=== PATIENT | male | born 1995 | race American Indian/Alaskan Native ===

== ENCOUNTER 2017-03-03 06:11 | Inpatient (IN) | payer OTHER ==
[2017-03-03 06:50] LABS: Basophils % (Auto) 0.5 % (0.0-1.8); Eosinophils % (Auto) 7.1 % (0.0-4.3); Hematocrit 46.1 % (35.5-45.6); Hemoglobin 14.7 gm/dl (11.8-15.2); Mean Corpuscular HGB Conc 32 % (32-34); Mean Corpuscular Volume 79 fl (84-94); Platelet Count 189 K/mm3 (140-440); Red Blood Count 5.82 M/mm3 (3.65-5.03); Red Cell Distribution Width 13.7 % (13.2-15.2); White Blood Count 10.7 K/mm3 (4.5-11.0)
[2017-03-03 06:53] LABS: Mean Corpuscular Hemoglobin 25 pg (28-32)
[2017-03-03 07:12] LABS: Alanine Aminotransferase 26 units/L (7-56); Albumin 3.9 g/dL (3.9-5); Albumin/Globulin Ratio 1.5 %; Alkaline Phosphatase 64 units/L (35-129); Anion Gap 16 mmol/L; BUN/Creatinine Ratio 14.44; Blood Urea Nitrogen 13 mg/dL (9-20); Calcium 8.7 mg/dL (8.4-10.2); Carbon Dioxide 24 mmol/L (22-30); Chloride 100.8 mmol/L (98-107); Glucose 94 mg/dL (75-100); Lipase 53 units/L (13-60); Potassium 4.2 mmol/L (3.6-5.0); Sodium 137 mmol/L (137-145); Total Protein 6.5 g/dL (6.3-8.2)
[2017-03-03 07:35] LABS: Bilirubin,Urine NEG (Negative); Blood,Urine NEG (Negative); Ketones,Urine NEG (Negative); Leukocyte Esterase,Urine NEG (Negative); Mucus,Urine FEW /HPF; Nitrite,Urine NEG (Negative); Protein,Urine <15 mg/dL mg/dL (Negative); Urobilinogen,Urine < 2.0 mg/dL (<2.0)
[2017-03-03] MEDS ORDERED: NACL 0.9% 1000 ML 1,000 ML IV ONE (10:36)
[2017-03-03] MEDS ORDERED: ZOFRAN IV ONE (10:36)
[2017-03-03] MEDS ORDERED: MORPHINE IV ONE (10:37)
--- NOTE | 2017-03-03 10:38 | Emergency Department Report ---
ED Abdominal Pain HPI - General Chief Complaint: Abdominal Pain Stated Complaint: STOMACH PAIN Time Seen by Provider: 03/03/17 10:23 Source: patient Mode of arrival: Ambulatory Limitations: No Limitations - History of Present Illness Initial Comments: 21-year-old male past medical history asthma, obesity, hypertension presents with complaint of abdominal pain since yesterday with associated nausea. Patient is awake alert and oriented 3 nontoxic appearing, speaking in full sentences denies eating anything out of the ordinary denies any recent travel. Denies any bloody diarrhea still states that he is passing gas and stool. Does not discretely state that he has diarrhea. Secondarily complaining of a rash to his abdomen and back. Patient states he has not had appendicitis surgery in the past. MD Complaint: abdominal pain Onset/Timin - Related Data Previous Rx's Medication Instructions Recorded Last Taken Type Hyoscyamine Subl [Levsin Sl 0.125] 0.125 mg SL Q4HR PRN #7 tablet 01/08/15 Unknown Rx Promethazine [Phenergan] 25 mg PO Q6H PRN #7 tablet 01/08/15 Unknown Rx EPINEPHrine (NF) [Epipen (Nf)] 0.3 mg IM ONCE #1 syringekit 05/12/15 Unknown Rx predniSONE [Deltasone] 20 mg PO QDAY #5 tab 05/12/15 Unknown Rx Allergies Allergy/AdvReac Type Severity Reaction Status Date / Time banana Allergy Shortness Verified 03/03/17 06:21 of Breath latex Allergy Shortness Verified 03/03/17 06:21 of Breath ED Review of Systems ROS: Stated complaint: STOMACH PAIN Other details as noted in HPI ED Past Medical Hx - Past Medical History Previous Medical History?: Yes Hx Hypertension: Yes Hx Asthma: Yes - Surgical History Past Surgical History?: No - Social History Smoking Status: Current Every Day Smoker Substance Use Type: None - Medications Home Medications: Home Medications Medication Instructions Recorded Confirmed Last Taken Type Hyoscyamine Subl [Levsin Sl 0.125] 0.125 mg SL Q4HR PRN #7 tablet 01/08/15 Unknown Rx Promethazine [Phenergan] 25 mg PO Q6H PRN #7 tablet 01/08/15 Unknown Rx EPINEPHrine (NF) [Epipen (Nf)] 0.3 mg IM ONCE #1 syringekit 05/12/15 Unknown Rx predniSONE [Deltasone] 20 mg PO QDAY #5 tab 05/12/15 Unknown Rx ED Physical Exam - General Limitations: No Limitations General appearance: alert, in no apparent distress - Head Head exam: Present: atraumatic, normocephalic - Eye Eye exam: Present: normal appearance, PERRL, EOMI - ENT ENT exam: Present: mucous membranes moist - Neck Neck exam: Present: normal inspection - Respiratory Respiratory exam: Present: normal lung sounds bilaterally. Absent: respiratory distress - Cardiovascular Cardiovascular Exam: Present: regular rate, normal rhythm. Absent: systolic murmur, diastolic murmur, rubs, gallop - GI/Abdominal GI/Abdominal exam: Present: tenderness (+ RLQ pain on palpation), guarding, normal bowel sounds - Rectal Rectal exam: Present: deferred - Extremities Exam Extremities exam: Present: normal inspection - Back Exam Back exam: Present: normal inspection - Neurological Exam Neurological exam: Present: alert, oriented X3 - Psychiatric Psychiatric exam: Present: normal affect, normal mood - Skin Skin exam: Present: warm, dry, intact, normal color. 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 Urena informed 5- IVF resus, Zosyn 4.5g IV Critical care attestation.: If time is entered above; I have spent that time in minutes in the direct care of this critically ill patient, excluding procedure time. ED Disposition Clinical Impression: Acute appendicitis Qualifiers: Acute appendicitis type: with localized peritonitis Qualified Code(s): K35.3 - Acute appendicitis with localized peritonitis Disposition: - TO HOME OR SELFCARE Is pt being admited?: No Does the pt Need Aspirin: No Condition: Stable Referrals: PRIMARY CARE,MD [Primary Care Provider] - 3-5 Days
[2017-03-03] MEDS ORDERED: NACL ONE (12:22)
--- NOTE | 2017-03-03 13:02 | Cat Scan Report ---
CT SCAN OF THE ABDOMEN AND PELVIS WITH CONTRAST: HISTORY: Right lower quadrant abdominal pain. TECHNIQUE: Helical CT in 1.25mm intervals following IV contrast. Sagittal and coronal reconstructions. FINDINGS: There is trace fluid adjacent to the appendix in the right paracolic gutter. The appendix measures 10 mm in diameter. A very early acute appendicitis could be present. Please correlate with the patient. The liver is normal in size and is without focal defect. No gallstones or biliary dilatation are noted. The spleen and pancreas demonstrate a normal size and attenuation with no evidence of abnormal mass. The kidneys are normal in size and position with no evidence of hydronephrosis or mass. The adrenal glands are normal. There is no intestinal obstruction or ascites. Normal appendix. The abdominal aorta is normal. No abnormalities are identified within the retroperitoneum or mesentery. There is no evidence of peritoneal air or fluid. There is no evidence of any abnormal masses or fluid collections within the pelvis. No adenopathy is identified. The bladder is normal. IMPRESSION: There are findings which are suggestive/questionable for acute appendicitis. The appendix is mildly dilated with trace of surrounding fluid. No advanced inflammatory changes or abscess. Please correlate with the clinical presentation of the patient.
[2017-03-03] MEDS ORDERED: ZOSYN/NS 4.5GM/100ML 4.5 GM/100 ML VIAL IV ONE (13:21)
[2017-03-03] MEDS ORDERED: NACL 0.9% 500 ML 500 ML IV ONE (13:22)
--- NOTE | 2017-03-03 13:34 | History and Physical Report ---
History of Present Illness Date of examination: 03/03/17 Date of admission: 03/03/17 Chief complaint: abd pain History of present illness: This is a morbidly obese 21 year old male with a 12-24 hour hx of abd pain, localized to the right lower quadrant, A WBC of 10k, (patient is on steroids/20 mgm q day for his asthma, although he is an active smoker), He had a CT of abd and pelvis which is questionalble for early appedicitis, appendix 10mm, no appendicolith, no abcess or perforation. Past History Past Medical History: other (asthma) Past Surgical History: No surgical history Social history: smoking Family history: no significant family history Medications and Allergies Allergies Allergy/AdvReac Type Severity Reaction Status Date / Time banana Allergy Shortness Verified 03/03/17 06:21 of Breath latex Allergy Shortness Verified 03/03/17 06:21 of Breath Home Medications Medication Instructions Recorded Confirmed Last Taken Type Hyoscyamine Subl [Levsin Sl 0.125] 0.125 mg SL Q4HR PRN #7 tablet 01/08/15 Unknown Rx Promethazine [Phenergan] 25 mg PO Q6H PRN #7 tablet 01/08/15 Unknown Rx EPINEPHrine (NF) [Epipen (Nf)] 0.3 mg IM ONCE #1 syringekit 05/12/15 Unknown Rx predniSONE [Deltasone] 20 mg PO QDAY #5 tab 05/12/15 Unknown Rx Active Meds: Active Medications Piperacillin Sod/Tazobactam Sod (Zosyn/Ns 4.5gm/100ml) 4.5 gm in 100 mls @ 200 mls/hr IV ONCE ONE Stop: 03/03/17 13:50 Sodium Chloride (Nacl 0.9% 500 Ml) 500 mls @ 999 mls/hr IV ONCE ONE Stop: 03/03/17 13:52 Review of Systems - Gastrointestinal abdominal pain Exam Vital Signs Temp Pulse Resp BP Pulse Ox 98.3 F 52 L 18 153/94 99 03/03/17 06:16 03/03/17 06:16 03/03/17 06:16 03/03/17 06:16 03/03/17 06:16 - Abdomen Abdomen: Present: other (see ER doctor's physical exam) Results - Labs 03/03/17 06:41 03/03/17 06:41 Abnormal lab results 03/03/17 Range/Units 06:41 RBC 5.82 H (3.65-5.03) M/mm3 Hct 46.1 H (35.5-45.6) % MCV 79 L (84-94) fl MCH 25 L (28-32) pg Eos % (Auto) 7.1 H (0.0-4.3) % Eos # 0.8 H (0.0-0.4) K/mm3 Seg Neutrophils % 71.3 H (40.0-70.0) % Diabetes panel 03/03/17 Range/Units 06:41 Sodium 137 (137-145) mmol/L Potassium 4.2 (3.6-5.0) mmol/L Chloride 100.8 (98-107) mmol/L Carbon Dioxide 24 (22-30) mmol/L BUN 13 (9-20) mg/dL Creatinine 0.9 (0.8-1.5) mg/dL Glucose 94 (75-100) mg/dL Calcium 8.7 (8.4-10.2) mg/dL AST 21 (5-40) units/L ALT 26 (7-56) units/L Alkaline Phosphatase 64 (35-129) units/L Total Protein 6.5 (6.3-8.2) g/dL Albumin 3.9 (3.9-5) g/dL Calcium panel 03/03/17 Range/Units 06:41 Calcium 8.7 (8.4-10.2) mg/dL Albumin 3.9 (3.9-5) g/dL Pituitary panel 03/03/17 Range/Units 06:41 Sodium 137 (137-145) mmol/L Potassium 4.2 (3.6-5.0) mmol/L Chloride 100.8 (98-107) mmol/L Carbon Dioxide 24 (22-30) mmol/L BUN 13 (9-20) mg/dL Creatinine 0.9 (0.8-1.5) mg/dL Glucose 94 (75-100) mg/dL Calcium 8.7 (8.4-10.2) mg/dL Adrenal panel 03/03/17 Range/Units 06:41 Sodium 137 (137-145) mmol/L Potassium 4.2 (3.6-5.0) mmol/L Chloride 100.8 (98-107) mmol/L Carbon Dioxide 24 (22-30) mmol/L BUN 13 (9-20) mg/dL Creatinine 0.9 (0.8-1.5) mg/dL Glucose 94 (75-100) mg/dL Calcium 8.7 (8.4-10.2) mg/dL Total Bilirubin 0.60 (0.1-1.2) mg/dL AST 21 (5-40) units/L ALT 26 (7-56) units/L Alkaline Phosphatase 64 (35-129) units/L Total Protein 6.5 (6.3-8.2) g/dL Albumin 3.9 (3.9-5) g/dL Assessment and Plan abd pain, morbid obesity, asthma , active smoker on po steroids. Will admit , NPO, IV hydration, iv antibiotics, pain control, possible lap appendectomy.
[2017-03-03] MEDS ORDERED: DULCOLAX PR PRN (13:37)
[2017-03-03] MEDS ORDERED: ZOFRAN IV PRN (13:37)
[2017-03-03] MEDS ORDERED: TYLENOL PO PRN (13:37)
[2017-03-03] MEDS ORDERED: MILK OF MAGNESIA PO PRN (13:37)
[2017-03-03] MEDS ORDERED: MORPHINE IV PRN (13:37)
[2017-03-03] MEDS ORDERED: ZOSYN/NS 4.5GM/100ML 4.5 GM/100 ML VIAL IV SCH (14:00)
--- NOTE | 2017-03-03 14:17 | Admit Criteria Form ---
Admission Criteria Documentation: ABDOMINAL PAIN Clinical Indications for Admission to Inpatient Care (Place 'X' for any and all applicable criteria): Admission is indicated for ANY ONE of the following(1)(2)(3)(4)(5): [ X]I. Inpatient admission required rather than observation care (Also use Abdominal Pain: Observation Care, as appropriate) because of ANY ONE of the following: [ ]a) Severe pain requiring acute inpatient management [ X]b) Identification of etiology/finding that requires inpatient care (eg, aortic dissection, free air) [ ]c) Absent bowel sounds with complete ileus(6) [ ]d) Suspected toxic megacolon [ ]e) Severe electrolyte abnormalities requiring inpatient care [ ]f) High fever or infection requiring inpatient admission as indicated by ANY ONE of following(7)(8): [ ] i) Appropriate outpatient or observational care antimicrobial treatment unavailable, not effective, or not feasible [ ] ii) Documented bacteremia [ ] iii) Temperature > 104.9 degrees F (oral) [ ] iv) T >103.1 F (oral) or < 96.8 F(rectal) that does not respond to all emergency treatment measures [ ]g) Signs of intestinal obstruction [B] [ ]h) Hemodynamic instability [ ]i) IV fluid to replace significant ongoing losses (greater than 3 L/m2 per day) (12)(13) [ ]j) Percutaneous or open drainage (eg, abscess, biliary tract ) procedures [ ]k) Parenteral nutrition regimen that must be implemented on inpatient basis [ ]l) Other condition,treatment or monitoring requiring inpatient admission. [ ]II. Peritoneal signs present [ ]III. Surgery needed that cannot be performed on an ambulatory basis. [ ]IV. Evaluation requires patient to not eat or drink for extended period ( eg, more than 24 hours). [ ]V. Contraindications and/or Inappropriate clinical situations for Observational Care in patients with abdominal pain, when ANY ONE of the following is required: [ ]a) Thorough evaluation is required to prevent catastrophic events due to delays in diagnosing (e.g.Mesenteric ischemia) 1,3 [ ]b) Patient with severe pathology or with chronic symptoms unlikely to improve in the ED stay (3) [ ]. General contraindications and/or Inappropriate clinical situations for Observational Care in patients with abdominal pain, when ANY ONE of the following is required: [ ]a) Prediction of prolongation of LOS based on ANY ONE of the following may be considered as a contraindication for observational care 2, 3, 4, 5, 6, 7, 8, 9, 10, 11 [ ]i) Age > 65 yrs. [ ]ii) Patient arriving by ambulance [ ]iii) Patient with high acuity [ ]iv) Patient requiring vital sign monitoring [ ]v) Patient on IV medication [ ]b) Systolic blood pressures 180mmHg 3,12 [ ]c) Patient with altered mental status including delirium and other alteration of consciousness, (3) [ ]d) Patient whose discharge disposition will be to a care home home or rehabilitation home should not be managed in Emergency Department Observation Unit. CMS rule requires 3 days hospital stay before such placement.3,13 [ ]e) Patient with failure to thrive due to broad array of etiologies 3,16,17 [ ]f) Inability to ambulate 3,14 Extended stay beyond goal length of stay may be needed for(2)(3): [ ]a) Persistent abdominal pain with suspected intra-abdominal process [ ]b) Diagnosed condition requiring continued stay (e.g., pancreatitis, complicated diverticulitis) [ ]c) Surgery (e.g., colectomy) The original [facility] content created by [employer] has been revised. The portions of the content which have been revised are identified through the use of italic text or in bold, and [facility] has neither reviewed nor approved the modified material.All other unmodified content is copyright [facility]. Please see references footnoted in the original [facility] edition 2016 Admission Criteria Met: Yes
[2017-03-03] MEDS: D5/0.45NS 1,000 ML IV SCH (18:29)
[2017-03-03] MEDS: ZOSYN/NS 4.5GM/100ML 4.5 GM/100 ML VIAL IV SCH (22:21)
[2017-03-04] MEDS ORDERED: XYLOCAINE 1% 20 mL INFILTRATI ONE
[2017-03-04] MEDS ORDERED: NACL 0.9% IR ONE ×3
[2017-03-04] MEDS ORDERED: MARCAINE 0.5% INFILTRATI ONE
[2017-03-04] MEDS: ZOSYN/NS 4.5GM/100ML 4.5 GM/100 ML VIAL IV SCH ×3 (05:15→22:16)
[2017-03-04] MEDS: D5/0.45NS 1,000 ML IV SCH (05:24)
[2017-03-04 05:35] LABS: Basophils % (Auto) 0.6 % (0.0-1.8); Eosinophils % (Auto) 11.2 % (0.0-4.3); Hematocrit 40.7 % (35.5-45.6); Hemoglobin 12.9 gm/dl (11.8-15.2); Mean Corpuscular HGB Conc 32 % (32-34); Mean Corpuscular Volume 79 fl (84-94); Platelet Count 164 K/mm3 (140-440); Red Blood Count 5.17 M/mm3 (3.65-5.03); Red Cell Distribution Width 13.6 % (13.2-15.2)
[2017-03-04 05:39] LABS: Mean Corpuscular Hemoglobin 25 pg (28-32)
--- NOTE | 2017-03-04 06:22 | Event Note ---
Date: 03/04/17 I examined this patient about 9:20 pm last night, he was hemodyn stable and tender to deep palpation in RLQ, no rebound or guarding, I will repeat CBC in am and tentatively place patient on OR schedule for lap appe, CT reviewed and shows possible early appendicitis,no appendicolithe, certainly no abcess or phlegmon, we shall see.
[2017-03-04] MEDS ORDERED: MARCAINE 0.5% 30 ML INFILTRATI ONE (08:56)
[2017-03-04] MEDS ORDERED: XYLOCAINE 1% 20 mL ONE (08:56)
[2017-03-04] MEDS ORDERED: XYLOCAINE MPF 2% ONE (09:17)
[2017-03-04] MEDS ORDERED: QUELICIN ONE (09:17)
[2017-03-04] MEDS ORDERED: SUBLIMAZE ONE ×2 (09:18→10:06)
[2017-03-04] MEDS ORDERED: DIPRIVAN 10 MG/ML IV ONE ×2 (09:18→09:58)
[2017-03-04] MEDS ORDERED: NACL 0.9% 1000 ML 1,000 ML ONE ×2 (09:22→10:58)
[2017-03-04] MEDS ORDERED: VERSED ONE (09:33)
[2017-03-04] MEDS ORDERED: PEPCID IV ONE (09:33)
--- NOTE | 2017-03-04 09:37 | Anesthesia Day of Surgery ---
Anesthesia Day of Surgery - Day of Surgery Patient Examined: Yes Patient H&P Reviewed: Yes Patient is NPO: Yes
--- NOTE | 2017-03-04 09:38 | Anesthesia Consultation ---
<ROSS CORTEZ - Last Filed: 03/04/17 09:37> Anesthesia Consult and Med Hx Date of service: 03/04/17 - Airway Anesthetic Teeth Evaluation: Good ROM Head & Neck: Adequate Mental/Hyoid Distance: Adequate Mallampati Class: Class II Intubation Access Assessment: Probably Good - Pulmonary Exam CTA: Yes - Cardiac Exam Cardiac Exam: RRR - Pre-Operative Health Status ASA Pre-Surgery Classification: ASA2 Proposed Anesthetic Plan: General - Pulmonary Hx Smoking: Yes Hx Asthma: Yes - Cardiovascular System Hx Hypertension: Yes <DELFINO AGUIAR - Last Filed: 03/04/17 09:43> Anesthesia Consult and Med Hx - Pulmonary Hx Smoking: Yes (4 black and mild dailyx 2 yrs) - Cardiovascular System Hx Hypertension: No - Endocrine Hx Non-Insulin Dependent Diabetes: No (h/o borderline DM) - Other Systems Hx Obesity: Yes
[2017-03-04] MEDS ORDERED: DILAUDID IV PRN (09:43)
[2017-03-04] MEDS ORDERED: ZOFRAN IV PRN (09:43)
[2017-03-04] MEDS ORDERED: LACTATED RINGERS 1,000 ML IV SCH (10:00)
[2017-03-04] MEDS ORDERED: DECADRON ONE (10:05)
[2017-03-04] MEDS ORDERED: ZOFRAN ONE (10:05)
[2017-03-04] MEDS ORDERED: ZEMURON IV ONE (10:20)
[2017-03-04] MEDS ORDERED: BLOXIVERZ ONE (10:21)
[2017-03-04] MEDS ORDERED: ROBINUL ONE ×2 (10:21)
[2017-03-04] MEDS ORDERED: DILAUDID ONE (10:26)
[2017-03-04] MEDS ORDERED: ePHEDrine SULFATE ONE (10:37)
--- NOTE | 2017-03-04 11:14 | Post Operative Note ---
Pre-op diagnosis: acute appendicitis Post-op diagnosis: same Findings: early appendicitis? Procedure: laparoscopic appendectomy Anesthesia: ELVIA Surgeon: PAUL AGUILAR Estimated blood loss: none Pathology: list (appendix) Condition: stable Disposition: floor
[2017-03-04] MEDS ORDERED: PERCOCET 5/325 PO PRN (11:37)
[2017-03-04] MEDS ORDERED: PROVENTIL IH ONE ×2 (11:39→11:44)
--- NOTE | 2017-03-04 11:44 | Post Anesthesia Evaluation ---
- Post Anesthesia Evaluation Patient Participated: Yes Airway Patent: Yes Stable Respiratory Function: Yes Nausea/Vomiting: No Temp > 96.8F: Yes Pain Manageable: Yes Adequeate Hydration: Yes Anesthesia Complications: No
[2017-03-04] MEDS: MORPHINE IV PRN ×2 (13:46→17:43)
[2017-03-04] MEDS ORDERED: MORPHINE IV PRN (13:49)
--- NOTE | 2017-03-04 15:32 | Operative Report ---
PREOPERATIVE DIAGNOSIS: Acute appendicitis. POSTOPERATIVE DIAGNOSIS: Acute appendicitis. PROCEDURE: Laparoscopic appendectomy. OPERATIVE FINDINGS: Compatible with early appendicitis. ANESTHESIA: General. ESTIMATED BLOOD LOSS: Essentially zero. SPECIMEN: Consisted of the appendix. The patient was hemodynamically stable throughout the case. COMPLICATIONS: There were no complications. PROCEDURE IN DETAIL: After informed consent, the patient was brought to the operating room, induced under general anesthesia. He was on IV antibiotics and had compression stockings in place. He was sterilely prepped and draped in a supine fashion with left arm tucked for standard laparoscopic appendectomy. An [place] drape was used. A skin wheal was raised in the right mid quadrant lateral to the epigastrics and a small incision was made with 11 scalpel. Veress needled was introduced, tested and found to be satisfactorily placed and intraabdominal cavity was insufflated to acceptable parameters with CO2. Veress needle was removed and under direct visualization with a 5 mm 30-degree camera, a 5-mm port was placed. All the other ports performed under direct visualization with the laparoscope. In a like fashion, a 12-mm port was placed in the subumbilical position and a 5-mm port on the left mid quadrant. The patient was then positioned properly. The operative findings were compatible with early acute appendicitis. Traction was placed on the tip of the appendix and then the mesoappendix was dissected away from the base of the appendix with a [place] retractor and I fired an endovascular stapler across the base of the appendix flushed with the cecum and then I fired a vascular application at the mesoappendix flush with the cecum. The appendix was then removed in a specimen bag. Once this was accomplished, I locally irrigated and the area with the [place]t irrigation system. There was excellent hemostasis at the staple line with no bleeding. Some Ashley was placed at the base of the vascular staple line. Next, I also used the LigaSure device to dissect the Lars's bands and lateral attachments to the cecum and of course, I mobilized the cecum to perform the appendectomy. The appendix was sent for permanent pathology. I carefully examined the base of the appendix, cecum staple line and the area of the mesoappendix to look for evidence of bleeding, none was present. Then, I withdrew the ports under direct visualization of the scope. I repaired the 12 mm port site with a UR 6-0 Vicryl and 4-0 Monocryl was used for the skin. The patient is stable throughout the case. The sponge and needle count was correct x2. The blood loss was essentially. JOB# [id number] MARIFER/CAT HOGAN
[2017-03-04] MEDS: NACL 0.9% 1000 ML 1,000 ML IV SCH (16:28)
[2017-03-04] MEDS: PERCOCET 5/325 PO PRN (22:18)
[2017-03-05] MEDS: ZOSYN/NS 4.5GM/100ML 4.5 GM/100 ML VIAL IV SCH (05:17)
[2017-03-05] MEDS: NACL 0.9% 1000 ML 1,000 ML IV SCH (05:18)
[2017-03-05] MEDS: PERCOCET 5/325 PO PRN (05:20)
[2017-03-05 07:20] LABS: Basophils % (Auto) 0.8 % (0.0-1.8); Eosinophils % (Auto) 1.7 % (0.0-4.3); Hematocrit 43.1 % (35.5-45.6); Hemoglobin 13.5 gm/dl (11.8-15.2); Mean Corpuscular HGB Conc 31 % (32-34); Mean Corpuscular Volume 79 fl (84-94); Platelet Count 190 K/mm3 (140-440); Red Blood Count 5.47 M/mm3 (3.65-5.03); Red Cell Distribution Width 13.8 % (13.2-15.2); White Blood Count 13.2 K/mm3 (4.5-11.0)
[2017-03-05 07:23] LABS: Mean Corpuscular Hemoglobin 25 pg (28-32)
--- NOTE | 2017-03-05 07:40 | Discharge Summary ---
Providers - Providers Date of Admission: 03/03/17 13:37 Date of discharge: 03/05/17 Attending physician: PAUL KAY 03/04/17 10:33 Physical Therapy Evaluation and Treat [CONS] Routine Comment: Reason For Exam: Cancel Order Primary care physician: POLL WATCHER Hospitalization Reason for admission: acute appendicitis Condition: Good Pertinent studies: CT abd pelvis Procedures: lap appendectomy Hospital course: PT admitted, iv fluids and antibiotics, CT positive for acute appendicitis, taken to OR for uneventful lap appendectomy, did well, VSS AF, tolerated diet, incisions and labs OK, sent home. Disposition: DC-01 TO HOME OR SELFCARE Time spent for discharge: 20 min Core Measure Documentation - Palliative Care Palliative Care/ Comfort Measures: Not Applicable - Core Measures Any of the following diagnoses?: none Exam - Constitutional Vitals: Temp Pulse Resp BP Pulse Ox 98.1 F 77 16 132/77 97 03/04/17 21:00 03/04/17 21:00 03/04/17 21:00 03/04/17 21:00 03/04/17 21:00 General appearance: Present: no acute distress - EENT Eyes: Present: PERRL - Neck Neck: Present: supple, normal ROM - Respiratory Respiratory effort: normal - Cardiovascular Rhythm: regular Heart Sounds: Present: S1 & S2. Absent: rub, click - Extremities Extremities: no ischemia Peripheral Pulses: within normal limits - Abdominal General gastrointestinal: Present: soft, non-tender, normal bowel sounds, other (incisions ok) - Psychiatric Psychiatric: appropriate mood/affect, intact judgment & insight - Neurologic Neurologic: CNII-XII intact, moves all extremities Plan Weight Bearing Status: Full Weight Bearing Diet: regular Wound: open to air (f/u Dr. Kay one week) Follow up with: PRIMARY CARE, [Primary Care Provider] - 3-5 Days Prescriptions: oxyCODONE /ACETAMINOPHEN [Percocet 5/325 mg] 1 tab PO Q4H PRN #30 tablet PRN Reason: Pain, Moderate (4-6)
[2017-03-05 07:57] VITALS: BP 118/71
--- NOTE | 2017-03-05 15:10 | Discharge Summary ---
DISCHARGE DIAGNOSIS: Early acute appendicitis. PROCEDURE: Laparoscopic appendectomy. HOSPITAL COURSE: This is a 21-year-old gentleman who presented with a 12-24 hour history of abdominal pain. He had a mildly elevated white count at 10,000. He underwent a CT scan of the abdomen and pelvis with findings consistent with early appendicitis. He was taken to the operating room and underwent an uneventful laparoscopic appendectomy. He was transferred to the floor, maintained on IV fluids and antibiotics. He was advanced to clear liquids and tolerating well at the time of discharge. His incisions were healing nicely. His lab work was fine with an H and H that were stable. Hemoglobin 13.5, hematocrit 43.1. His incisions were healing nicely. He was instructed on wound care and will be seen in my office 1 week following discharge. He was told to advance his diet as tolerated. He was given a prescription for Percocet for pain, no further antibiotics. JOB# [id number] MARIFER/CAT
== END 2017-03-05 11:14 | disposition home or self-care (01) | DRG 343 ==
LOC: ED 06:11 → 3A 13:37 → 2B-SURG 03-04 11:59
PROVIDERS: ADMIT Surgery; ATTEND Surgery
PROC: 0DTJ4ZZ Resection of Appendix, Percutaneous Endoscopic Approach (ICD-10-PCS; principal; 2017-03-04)
DX: K35.80 Unspecified acute appendicitis (principal); J45.909 Unspecified asthma, uncomplicated; E66.01 Morbid (severe) obesity due to excess calories; I10 Essential (primary) hypertension; F17.210 Nicotine dependence, cigarettes, uncomplicated; Z91.040 Latex allergy status; Z91.018 Allergy to other foods
CPT/HCPCS: 36415; 74177; 80053; 81001; 82140; 83690; 85025; 88304; 96361; 96365; 96375; A4217; J0330; J1100; J1170; J2250; J2270; J2405; J2543; J2704; J2710; J3010; J7030; J7040; Q9967

== ENCOUNTER 2019-08-03 13:18 | Emergency (ER) | payer SELFPAY | END 2019-08-03 16:42 | disposition home or self-care (01) | LOC: ED 13:18 | CPT/HCPCS: 36415; 80053; 81001; 82271; 85025; Q0162 ==

== ENCOUNTER 2022-03-01 15:15 | Emergency (ER) | payer SELFPAY ==
[2022-03-01 17:34] VITALS: BP 154/91
--- NOTE | 2022-03-01 18:31 | Emergency Department Report ---
ED General Adult HPI - General Chief complaint: Chest Pain Stated complaint: CHEST PAIN/TINGLING IN ARM/FINGERS Time Seen by Provider: 03/01/22 17:46 Source: patient Mode of arrival: Ambulatory Limitations: No Limitations - History of Present Illness Initial comments: 26-year-old [place] male no significant past medical history presents emerged from complaining of chest aches and pain which occurred after he was wrestling around with his stepfather earlier today. States after he was wrestling around with his stepfather believes he began to develop soreness to the mid chest which is worse with palpation and range of motion and deep breaths reports no shortness of breath, no palpitations no fever, chills, sweats. No presyncope. -: Gradual Radiation: non-radiation Quality: dull Consistency: constant Improves with: none Worsens with: none - Related Data Previous Rx's Medication Instructions Recorded Last Taken Type Indira Root [Indira] 250 mg PO QID PRN #30 capsule 08/03/19 Unknown Rx Ondansetron [Zofran Odt] 4 mg PO Q8HR PRN #20 tab.rapdis 08/03/19 Unknown Rx Pantoprazole [Protonix TAB] 20 mg PO QDAY #30 tablet. 08/03/19 Unknown Rx Allergies Allergy/AdvReac Type Severity Reaction Status Date / Time banana Allergy Shortness Verified 03/03/17 06:21 of Breath latex Allergy Shortness Verified 03/03/17 06:21 of Breath ED Review of Systems ROS: Stated complaint: CHEST PAIN/TINGLING IN ARM/FINGERS Other details as noted in HPI Comment: All other systems reviewed and negative ED Past Medical Hx - Past Medical History Hx Hypertension: No Hx Asthma: Yes Additional medical history: Obesity - Surgical History Hx Appendectomy: Yes - Social History Smoking Status: Current Every Day Smoker Substance Use Type: Alcohol - Medications Home Medications: Home Medications Medication Instructions Recorded Confirmed Last Taken Type Indira Root [Indira] 250 mg PO QID PRN #30 capsule 08/03/19 Unknown Rx Ondansetron [Zofran Odt] 4 mg PO Q8HR PRN #20 tab.rapdis 08/03/19 Unknown Rx Pantoprazole [Protonix TAB] 20 mg PO QDAY #30 tablet. 08/03/19 Unknown Rx ED Physical Exam - General Limitations: No Limitations General appearance: alert, in no apparent distress - Head Head exam: Present: atraumatic, normocephalic - Eye Eye exam: Present: normal appearance, PERRL, EOMI Pupils: Present: normal accommodation - ENT ENT exam: Present: normal exam, mucous membranes moist - Neck Neck exam: Present: normal inspection, full ROM - Respiratory Respiratory exam: Present: normal lung sounds bilaterally, chest wall tenderness (Tenderness with palpation along the sternal border for any movement noted.). Absent: respiratory distress, wheezes, rales, rhonchi, stridor, accessory muscle use, prolonged expiratory - Cardiovascular Cardiovascular Exam: Present: regular rate, normal rhythm, normal heart sounds. Absent: bradycardia, tachycardia, irregular rhythm, systolic murmur, diastolic murmur, rubs, gallop - GI/Abdominal GI/Abdominal exam: Present: soft, normal bowel sounds - Rectal Rectal exam: Present: deferred - Extremities Exam Extremities exam: Present: normal inspection, full ROM, normal capillary refill - Back Exam Back exam: Present: normal inspection. Absent: CVA tenderness (R), CVA tenderness (L) - Neurological Exam Neurological exam: Present: alert, oriented X3, CN II-XII intact, normal gait - Psychiatric Psychiatric exam: Present: normal affect, normal mood, anxious - Skin Skin exam: Present: warm, dry, intact, normal color. Absent: rash, cyanosis, erythema ED Course Vital Signs 03/01/22 17:32 Temperature 98.2 F Pulse Rate 87 Respiratory 16 Rate Blood Pressure 154/91 [Left] O2 Sat by Pulse 96 Oximetry Critical care attestation.: If time is entered above; I have spent that time in minutes in the direct care of this critically ill patient, excluding procedure time. ED Disposition Clinical Impression: Acute chest wall pain Disposition: HOME / SELF CARE / HOMELESS Is pt being admited?: No Does the pt Need Aspirin: No Condition: Stable Instructions: Nonspecific Chest Pain, Adult Additional Instructions: You were evaluated emergency department today for chest pain. Your evaluation has shown no medicals conditions requiring emergent intervention at this time, however recommend that you follow-up with your primary care physician or your chief credit officer soon as possible for further testing as an outpatient. Please schedule an appointment for follow-up with your primary care physician as soon as possible. Return to emergency department if you expands worsening uncontrolled chest pain, shortness of breath, lightheadedness, feeling faint, nausea, vomiting or any other concerning symptoms. Referrals: [facility] [Provider Group] - 3-5 Days
== END 2022-03-01 19:31 | disposition home or self-care (01) ==
LOC: ED 15:15
DX: R07.89 Other chest pain (principal); J45.909 Unspecified asthma, uncomplicated; F17.200 Nicotine dependence, unspecified, uncomplicated; Z72.89 Other problems related to lifestyle; Z91.018 Allergy to other foods; Z91.040 Latex allergy status; Z79.899 Other long term (current) drug therapy
CPT/HCPCS: 99282

== ENCOUNTER 2022-03-19 14:01 | Emergency (ER) | payer SELFPAY ==
[2022-03-19] MEDS ORDERED: HYDROcodone/ACETAMINOPHEN 5-325 MG TAB PO ONE (17:32)
[2022-03-19] MEDS ORDERED: cephALEXin 500 MG CAP PO ONE (17:32)
[2022-03-19] MEDS ORDERED: TETANUS,DIPH,PERTUSS(ACELL) VACCINE 0.5 ML SYRINGE IM ONE (17:32)
--- NOTE | 2022-03-19 18:11 | Emergency Department Report ---
ED General Adult HPI - General Stated complaint: CUT ON FINGER ON L HAND Time Seen by Provider: 03/19/22 14:39 - History of Present Illness Initial comments: 26-year-old male with no significant past medical history reports to the ER look, left index finger due to cooking at home. Patient reports the cut happened around 8:00 last night. Patient reports no other signs and symptoms at this time. - Related Data Previous Rx's Medication Instructions Recorded Last Taken Type Indira Root [Indira] 250 mg PO QID PRN #30 capsule 08/03/19 Unknown Rx Ondansetron [Zofran Odt] 4 mg PO Q8HR PRN #20 tab.rapdis 08/03/19 Unknown Rx Pantoprazole [Protonix TAB] 20 mg PO QDAY #30 tablet. 08/03/19 Unknown Rx Ibuprofen [Motrin] 600 mg PO Q8H PRN 6 Days #18 tablet 03/19/22 Unknown Rx cephALEXin [Keflex] 500 mg PO Q12HR 7 Days #14 cap 03/19/22 Unknown Rx Allergies Allergy/AdvReac Type Severity Reaction Status Date / Time banana Allergy Shortness Verified 03/19/22 19:03 of Breath latex Allergy Shortness Verified 03/19/22 19:03 of Breath ED Review of Systems ROS: Stated complaint: CUT ON FINGER ON L HAND Other details as noted in HPI Comment: All other systems reviewed and negative Skin: other (Left index laceration to the plantar side. No nail involvement noted. ) ED Past Medical Hx - Past Medical History Previous Medical History?: No Hx Hypertension: No Hx Asthma: Yes Additional medical history: Obesity - Surgical History Hx Appendectomy: Yes - Social History Smoking Status: Current Every Day Smoker Substance Use Type: Alcohol - Medications Home Medications: Home Medications Medication Instructions Recorded Confirmed Last Taken Type Indira Root [Indira] 250 mg PO QID PRN #30 capsule 08/03/19 Unknown Rx Ondansetron [Zofran Odt] 4 mg PO Q8HR PRN #20 tab.rapdis 08/03/19 Unknown Rx Pantoprazole [Protonix TAB] 20 mg PO QDAY #30 tablet. 08/03/19 Unknown Rx Ibuprofen [Motrin] 600 mg PO Q8H PRN 6 Days #18 tablet 03/19/22 Unknown Rx cephALEXin [Keflex] 500 mg PO Q12HR 7 Days #14 cap 03/19/22 Unknown Rx ED Physical Exam - General General appearance: alert, in no apparent distress - Head Head exam: Present: atraumatic, normocephalic - Eye Eye exam: Present: normal appearance - ENT ENT exam: Present: mucous membranes moist - Neck Neck exam: Present: normal inspection - Respiratory Respiratory exam: Present: normal lung sounds bilaterally. Absent: respiratory distress - Cardiovascular Cardiovascular Exam: Present: regular rate, normal rhythm. Absent: systolic murmur, diastolic murmur, rubs, gallop - GI/Abdominal GI/Abdominal exam: Present: soft, normal bowel sounds - Rectal Rectal exam: Present: deferred - Extremities Exam Extremities exam: Present: normal inspection - Back Exam Back exam: Present: normal inspection - Neurological Exam Neurological exam: Present: alert, oriented X3 - Psychiatric Psychiatric exam: Present: normal affect, normal mood - Skin Skin exam: Present: warm, dry, normal color, other. Absent: rash ED Course Vital Signs 03/19/22 14:05 Temperature 98.1 F Pulse Rate 63 Respiratory 16 Rate Blood Pressure 146/88 [Right] O2 Sat by Pulse 99 Oximetry ED Medical Decision Making - Medical Decision Making 26-year-old male reports to the ER with a laceration to the tip of his left index finger that he sustained at home while cooking around 8:00 PM. On physical exam there is a superficial laceration almost 1 cm in length. Currently the laceration has already started healing process and has been over 12 hours since laceration has occurred. Patient is not up-to-date on his tetanus shot. Tdap shot received in ER. Laceration has been cleaned out. Patient started on antibiotics. No laceration repair done, patient informed due to laceration being over 12 hours and laceration is already started to heal itself. Patient informed he would have a great risk of infection if laceration was repaired. Patient understands plan of care and verbalized understanding. Patient stable for discharge Vital Signs 03/19/22 14:05 Temperature 98.1 F Pulse Rate 63 Respiratory 16 Rate Blood Pressure 146/88 [Right] O2 Sat by Pulse 99 Oximetry Critical care attestation.: If time is entered above; I have spent that time in minutes in the direct care of this critically ill patient, excluding procedure time. ED Disposition Clinical Impression: Laceration of left index finger Qualifiers: Encounter type: initial encounter Damage to nail status: without damage Foreign body presence: without foreign body Qualified Code(s): S61.211A - Laceration without foreign body of left index finger without damage to nail, initial encounter Disposition: 01 HOME / SELF CARE / HOMELESS Is pt being admited?: No Condition: Stable Instructions: Laceration Care, Adult, Nonsutured Laceration Care Prescriptions: cephALEXin [Keflex] 500 mg PO Q12HR 7 Days #14 cap Ibuprofen [Motrin] 600 mg PO Q8H PRN 6 Days #18 tablet PRN Reason: Pain Referrals: PAMELA PICHARDO MD [Primary Care Provider] - 3-5 Days Forms: Work/School Release Form(ED)
[2022-03-19 19:25] VITALS: BP 146/88
== END 2022-03-19 15:00 | disposition home or self-care (01) ==
LOC: ED 14:01
DX: S61.211A Laceration without foreign body of left index finger without damage to nail, initial encounter (principal); J45.909 Unspecified asthma, uncomplicated; F17.200 Nicotine dependence, unspecified, uncomplicated; Z90.49 Acquired absence of other specified parts of digestive tract; Z72.89 Other problems related to lifestyle; Z91.040 Latex allergy status; Z91.018 Allergy to other foods; Z79.899 Other long term (current) drug therapy; X58.XXXA Exposure to other specified factors, initial encounter; Y93.89 Activity, other specified; Y92.89 Other specified places as the place of occurrence of the external cause; Y99.8 Other external cause status
CPT/HCPCS: 90471; 90715; 99282